=== PATIENT | female | born 1970 | race Caucasian/White ===

== ENCOUNTER 2024-07-14 06:44 | Day surgery (SDC) | payer OTHER ==
[~2024-07-14 06:44] MED LIST: Scopalamine 1mg/3day Transdermal Patch TOP ONE; Sodium Chloride 0.9% 10 ML Syringe FLUSH PRN; Sodium Chloride 0.9% 2.5 ML Syringe FLUSH PRN; Sodium Chloride 0.9% 20 ML SDV IV PRN
[2024-07-14] MEDS: Scopalamine 1mg/3day Transdermal Patch TOP ONE (06:55)
[2024-07-14] MEDS: Lactated Ringers 1,000 ML IV SCH (07:05)
[2024-07-14] MEDS ORDERED: Bupivacaine 0.25% 30 ML SDV ONE ×2 (07:06→07:28)
[2024-07-14] MEDS ORDERED: Ropivacaine 0.5% 5 MG/ML 30 ML SDV ONE (07:06)
[2024-07-14] MEDS ORDERED: Morphine 10 MG/ML SDV ONE (07:07)
[2024-07-14 07:10] LABS: HEMATOCRIT 40.1 % (37.0-47.0); HEMOGLOBIN 14.7 g/dL (12.0-16.0); MEAN CORPUSCULAR HEMOGLOBIN 34.4 pg (28.0-32.0); MEAN CORPUSCULAR HGB CONC 36.7 g/dL (32.0-36.0); MEAN CORPUSCULAR VOLUME 93.9 fL (83.0-99.0); MEAN PLATELET VOLUME 9.9 fL (9.4-12.3); PLATELET COUNT,PLT 220 K/uL (150-400); RED BLOOD CELL COUNT 4.27 M/uL (4.10-5.30); WHITE BLOOD CELL COUNT,WBC 12.95 K/uL (3.9-11.3)
[2024-07-14] MEDS: Clindamycin Phosphate in D5W 900 MG in Premix Bag 1 BAG IV ONE (07:17)
[2024-07-14] MEDS ORDERED: Methylene Blue 50 MG/10 ML Ampule ONE (07:33)
[2024-07-14] MEDS ORDERED: Nalbuphine 10 MG/1 ML Vial IVPUSH PRN (07:44)
[2024-07-14] MEDS ORDERED: fentaNYL 100 MCG/2 ML SDV IVPUSH PRN (07:44)
[2024-07-14] MEDS ORDERED: Acetaminophen/oxyCODONE 325-5 MG Tab PO PRN (07:44)
[2024-07-14] MEDS ORDERED: diphenhydrAMINE 50 MG/ML SDV IVPUSH PRN (07:44)
[2024-07-14] MEDS ORDERED: Ondansetron 4 MG/2 ML SDV IVPUSH PRN (07:44)
[2024-07-14] MEDS ORDERED: Propofol 200 MG/20 ML SDV ONE (07:45)
[2024-07-14] MEDS ORDERED: Dexamethasone 4 MG/ML 5 ML MDV ONE (07:45)
[2024-07-14] MEDS ORDERED: Lidocaine 2% 5 ML SDV ONE (07:45)
[2024-07-14] MEDS ORDERED: Rocuronium Bromide 50 MG/5 ML Syringe ONE (07:45)
[2024-07-14] MEDS ORDERED: Ondansetron 4 MG/2 ML SDV ONE (07:45)
[2024-07-14] MEDS ORDERED: Midazolam 1 MG/ML 2 ML SDV ONE (07:45)
[2024-07-14] MEDS ORDERED: fentaNYL 100 MCG/2 ML SDV ONE (07:45)
[2024-07-14] MEDS ORDERED: Sugammadex Sodium 200 MG/2 ML VIAL IV ONE (08:10)
[2024-07-14] MEDS ORDERED: Ketorolac 30 MG/ML SDV ONE (08:10)
[2024-07-14] MEDS ORDERED: Phenylephrine HCl In 0.9% NaCl 1 MG/10 ML Syringe ONE (08:11)
== END 2024-07-14 10:38 | disposition home or self-care (01) ==
LOC: MW.SDS 06:44
PROVIDERS: ATTEND Obstetrics & Gynecology
DX: N83.8 Other noninflammatory disorders of ovary, fallopian tube and broad ligament (principal); I10 Essential (primary) hypertension; F17.210 Nicotine dependence, cigarettes, uncomplicated; Z79.899 Other long term (current) drug therapy; Z88.2 Allergy status to sulfonamides; Z91.012 Allergy to eggs
CPT/HCPCS: 36415; 58661; 85027; A9270; C1729; J0131; J0665; J0736; J1100; J1885; J2250; J2272; J2371; J2405; J2704; J2795; J3010; J3490; J7120